=== PATIENT | male | born 1980 | race African-American/Black ===

== ENCOUNTER 2020-05-25 05:43 | Emergency (ER) | payer OTHER, SELFPAY ==
--- NOTE | ~2020-05-25 | CT_ITS ---
EXAMINATION: CT chest abdomen pelvis w con DATE: 05/25/2020 06:36 INDICATION: Back and abdominal pain TECHNIQUE: Transaxial computed tomographic images of the chest, abdomen, and pelvis were obtained aft er the administration of 100 cc of Omnipaque 350 intravenous contrast. The dose-length product (DLP) was 844.11 mGy-cm. Automated exposure control and iterative reconstruction technique were employed. COMPARISON: None FINDINGS: CHEST CT: There is mild emphysema of the lung apices. The lungs are free of acute opacities. There is no pleura l effusion or pneumothorax. No pathologically enlarged thoracic lymph nodes are identified. The heart size is normal. ABDOMEN/PELVIS CT: The liver, spleen, pancreas, gallbladder, and adrenal glands are normal. The kidneys are unremarkable . No pathologically enlarged abdominal or pelvic lymph nodes are identified. There is no free intrape ritoneal gas or evidence of bowel obstruction. The aorta is unremarkable. There is mild lumbar spondy losis. IMPRESSION: 1. No acute abnormality of the chest, abdomen, or pelvis. Reviewed, dictated and finalized at location A. N INSPECTOR
--- NOTE | ~2020-05-25 | CT_ITS ---
EXAMINATION: CT cervical spine wo con DATE: 05/25/2020 06:35 INDICATION: Neck pain TECHNIQUE: Computed tomography (CT) of the cervical spine was performed without intravenous contrast. The dose-length product (DLP) was 469.07 mGy-cm. Automated exposure control and iterative reconstruc tion technique were employed. COMPARISON: None FINDINGS: There is no fracture, dislocation, or subluxation. The odontoid is intact. The vertebral neil dy alignment and intervertebral disc spaces are normal. There is anterior wedging and reversal of the normal cervical lordosis centered at C6 which appears to be physiologic. The prevertebral soft tissu es are normal. Small degenerative osteophytes project from the anterior endplates of multiple vertebr al bodies. IMPRESSION: 1. No acute osseous abnormality. Reviewed, dictated and finalized at location A. CAL OFFICE TECHNOLOGIST
--- NOTE | ~2020-05-25 | CT_ITS ---
EXAMINATION: CT brain wo con INDICATION: Head injury COMPARISON: None TECHNIQUE: Standard unenhanced head CT. The dose-length product (DLP) was 605.33 mGy-cm. The mA was a djusted according to patient size. Iterative reconstruction technique was employed. FINDINGS: There is no intracranial hemorrhage, acute infarction, or abnormal mass lesion. The ventric les are normal. There is no abnormal mass effect or midline shift. The chapman-white matter differentiat ion is normal. The basal cisterns are patent. The orbits are normal. A metallic foreign body is prese nt in the left temporal scalp soft tissues which has a chronic appearance given the lack of adjacent inflammation or laceration. The paranasal sinuses, mastoids and calvarium are normal. IMPRESSION: 1. No acute intracranial abnormality. Reviewed, dictated and finalized at location A. AL SURGEON
[2020-05-25 05:44] VITALS: BP 132/93; PULSE 69; RESP 20; TEMP 36.6; O2SAT 100
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
[2020-05-25 06:19] LABS: Estimated CRCL calculation 75 ml/min; Estimated Glomerular Filt Rate > 60
[2020-05-25 06:27] LABS: Basophils Percent Auto 0.5 % (0.2-1.2); Eosinophils Absolute Auto 0.1 K/mm3 (0-0.3); Eosinophils Percent Auto 0.8 % (0-4.4); Hemoglobin 14.7 g/dL (14.0-18.0); Immature Granulocyte Absolute 0.02 K/mm3 (0.00-0.031); Immature Granulocyte Percent A 0.3 % (0-0.5); Immature Platelet Fraction Pct 3.5 % (0.9-11.2); Lymphocytes Absolute Auto 1.36 K/mm3 (0.9-3.2); Lymphocytes Percent Auto 21.6 % (18.3-44.2); Mean Corpuscular HGB Conc 32.7 g/dl (32-36); Mean Corpuscular Hemoglobin 30.9 pg (26-34); Mean Corpuscular Volume 94.5 fl (80-100); Mean Platelet Volume 10.3 fl (7.4-10.4); Monocytes Absolute Auto 0.6 K/mm3 (0.1-0.6); Monocytes Percent Auto 9.7 % (2.6-8.5); Neutrophils Absolute Auto 4.2 K/mm3 (1.3-6.7); Neutrophils Percent Auto 67.1 % (45.5-73.1); Platelet Count Result 137 k/mm3 (150-375); Red Blood Count 4.76 M/mm3 (4.6-6.20); Red Cell Distribution Width 13.4 % (11.5-14.5); White Blood Count 6.3 K/mm3 (4.5-10.0)
--- NOTE | 2020-05-25 06:32 | PC.NURSE ---
return from ct.
[2020-05-25 06:40] LABS: Alanine Aminotransferase 15 U/L (4-50); Albumin Level 3.9 g/dL (3.5-5.1); Alkaline Phosphatase 59 U/L (38-126); Anion Gap 5 mmol/L (8-16); Aspartate Amino Transferase 27 U/L (17-59); Bilirubin,Total 0.3 mg/dL (0.2-1.3); Blood Urea Nitrogen 9 mg/dL (9-20); Calcium 9.2 mg/dL (8.4-10.2); Carbon Dioxide 32 mmol/L (22-30); Chloride 103 mmol/L (98-107); Estimated CRCL calculation 82 ml/min; Estimated Glomerular Filt Rate > 60; Glucose 103 mg/dL (75-110); Potassium 4.2 mmol/L (3.4-5.0); Sodium 140 mmol/L (137-145)
[2020-05-25] MEDS: KETOROLAC 15 MG/ML VIAL (*BKC) IV PUSH (06:51)
[2020-05-25 06:52] VITALS: BP 120/74; PULSE 53; RESP 18
--- NOTE | 2020-05-25 07:20 | PC.NURSE ---
Assumed pt care at this time, pt unable to give ua, refusing cath.
[2020-05-25 07:24] VITALS: BP 116/73; PULSE 59; RESP 20; O2SAT 96
[2020-05-25 07:51] VITALS: BP 126/74; PULSE 71; RESP 13; O2SAT 99
== END 2020-05-25 07:51 | disposition home or self-care (01) ==
PROVIDERS: Emergency Medicine; Emergency Provider Emergency Medicine
DX: S16.1XXA Strain of muscle, fascia and tendon at neck level, initial encounter (principal); M54.5 Low back pain; V89.0XXA Person injured in unspecified motor-vehicle accident, nontraffic, initial encounter
CPT/HCPCS: 70450; 71260; 72125; 74177; 80053; 85025; 85055; 96374; 99284; J1885; Q9967